=== PATIENT | female | born 1965 | race Hispanic/Latino ===

== ENCOUNTER 2016-10-21 11:30 | Day surgery (SDC) | payer OTHER ==
[2016-10-21] VITALS (9 sets, daily range): BP systolic 136–170; BP diastolic 78–90; PULSE 70–86; RESP 13–26; O2SAT 96–100
[~2016-10-21] VITALS: Ht 152.4 cm; Wt 74.9 kg
--- NOTE | 2016-10-21 06:37 | PCM.HPANE ---
Patient Data Surgeon Admitting Provider: Attending Provider:eDandre Jeffers MD Primary Care Physician:Osmel Becker MD Other Provider:Levon Singer Anesthesia Reason for Visit Cystocele, Rectocele, Stress Incontinence Ht/WT & BMI Height (Feet): 4 Height (Inches): 6 Weight (Kilograms): 78.481 Body Mass Index 41.00 Allergies Coded Allergies: latex (Verified Allergy, Unknown, UNKNOWN, 10/20/16) Uncoded Allergies: PEACH (Allergy, Unknown, ITCH AND MOUTH SWELLS, 11/18/03) PLASTIC (Allergy, Unknown, RED, 11/18/03) Past Anesthesia History Anesthesia History: Denies:: Anesthesia Reactions, Malignant Hyperthermia Diabetes History Hx Diabetes?: Yes (RECENT HGB A1C 7.1 DOWN FROM 8.2) Type of Diabetes: Type II Glycemic Control: Oral Medication MRSA MRSA: No Medications Reported Medications Atorvastatin (Lipitor)10 Mg Tab10 Mg PO DAILY Ref 0 10/20/16 Albuterol HFA (Proair HFA)8.5 Gm Hfa.aer.ad2 Puffs INHALATION Q4H PRN PRN #1 INHALER 10/20/16 Nitrofurantoin Monohyd/M-Cryst (MacroBid)100 Mg [id number] Mg PO BID Ref 0 10/20/16 Ibuprofen 800 Mg Rrimhp221 Mg PO DAILY PRN For Pain Ref 0 10/20/16 Phenazopyridine (Pyridium)200 Mg Lycaty975 Mg PO TID PRN For Pain Ref 0 10/20/16 Ascorbate Calcium (Vitamin C)500 Mg Jneguw685 Mg PO DAILY 05/17/15 Metformin (Glucophage)1,000 Mg Tablet1,000 Mg PO BID Ref 0 05/17/15 Discontinued Reported Medications Oxybutynin Chloride ER 5 Mg Tab.er.245 Mg PO DAILY Ref 0 05/18/15 Discontinued Scripts Valacyclovir 1,000 Mg Tablet1,000 Mg PO TID 7 Days Prov:Ileana Cortez DO 05/19/15 Prednisone (PredniSONE)20 Mg Rreqti58 Mg PO DAILY 7 Days Ref 0 Prov:Ileana Cortez DO 05/19/15 Atorvastatin Calcium 40 Mg Dxvbgj91 Mg PO HS 30 Days Prov:Ileana Cortez DO 05/19/15 History History of ENT Problems?: Yes HEENT History: Positive for:: Dysphagia (INTERMITTANT DYSPHAGIA) TMJ Other HEENT Pertinent History: 05/2015 FACIAL NERVE PALSEY Hx of Heart Problems?: Yes Cardiovascular History: Positive for:: Hypertension (OFF MEDS FOR 2 YRS NOW PER MD ORDER) Denies:: Congestive Heart Failure Heart Murmur (MPS 07/2012 WNL) Hx of Respiratory Problem?: Yes Respiratory History: Positive for:: Asthma (many years ago) Dyspnea (earlier today) Denies:: COPD Chest Surgery Emphysema Hemoptysis Pneumonia Tuberculosis Use of C-PAP Machine (SNORES) Hx Neurologic Problems?: Yes Neurological History: Positive for:: CVA (CVA RULED OUT 05/2015 DX W/ FACIAL NERVE PALSEY) Headaches Other Neurological Pertinent: MILD PERIPHERAL NEUROPATHY Hx of GI Problems?: Yes Other GI Pertinent History: S/P UMBILICAL HERNIA RPR Hx of Problems?: Yes Female Hx: Denies:: Currently Problems with Breasts? Skin History: Denies:: History Skin Disorders? Pressure Ulcers Hx Musculoskeletal Problems?: Yes Musculoskeletal History: Positive for:: Back Injury (C/OF BACK/NECK PAIN) Osteoarthritis Hx of Psycho/Social Problems?: No Hx Surgeries?: Yes (UMBILICAL HERNIA,HYST) Hx Any Other Health Problems?: Yes Other History: Positive for:: Hospitalization (HYPERGLYCEMIA) Denies:: Cancer Thyroid Disease History Blood Transfusions: Denies:: Accept Blood Products? Blood Transfuse Reaction Blood Transfusions (MUST ASK @ TIME FOR PERMISSION) Hx Diabetes: Yes (RECENT HGB A1C 7.1 DOWN FROM 8.2) Hx Alcohol Use: NoHx Substance Use: No Smoking Status: Never Smoker Have You Smoked inLast 12 mo: No Stop/Bang S-Snoring: Do You Snore Loudly: Yes T-Tired: feel tired, fatigued: No O-Obsered: Observed not breath: No P-Blood Pressure: treated: No B- Body Mass Index > 35 kg/m2: No A- Age over 50: Yes N- Neck Large Circumference: No G- Gender Male: No NABEEL Total Score: 2 NABEEL Risk Assessment: Low Risk, <3 Yes Risk Assessment Category Category 1A: Patient has history of documented sleep apnea, and HAS NOT received any narcotic, sedative or anesthesia administration during this stay. Category 1B: Patient has history of documented sleep apnea, and HAS received any narcotic , sedative or anesthesia administration during this stay Category 2: Patient has SUSPECTED Obstructive Sleep Apnea, and HAS received any narcotic , sedative or anesthesia administration during this stay. Category 3: Patient has SUSPECTED Obstructive Sleep Apnea and HAS NOT received narcotic, sedative or anesthesia administration during this stay. Category 4: Outpatient in Procedural Areas with known sleep apnea or who screen positive for High Risk via the STOP/BANG questionnaire. Exam Exam General Appearance: Alert, Oriented X3, Cooperative, No Acute Distress HEENT/AIRWAY: MP 2 Lungs: Clear to Auscultation, Normal Air Movement Heart: Exam Unremarkable, Regular Rate/Rhythm, No Murmurs/Rubs/Gallops Plan Impression Patient chart reviewed, patient interviewed and anesthestic plan with risks, benefits, and alternatives discussed, and informed consent obtained. ASA Physical Status: ASA2 Mod Systemic Disease Anesthetic Plan: GA Bene/Risks/Altern/Consents: Yes HP Complete Prior to Induction: Yes Dmitriy Kerr MD Oct 21, 2016 06:37
[~2016-10-21 11:30] MED LIST: ALBU8.5H2 INHALATION; ASCO-294 PO; ATRV10T PO; CeFAZolin Inj 2 GM in IV Premix 1 EACH IV ONE; IBUP800T28 PO; Lactated Ringer's 1,000 ML IV SCH; METF1000 PO; NITR100 PO; PHEN-684 PO; Phenazopyridine 97.5 mg Tablet PO ONE
[2016-10-21] MEDS ORDERED: Dexamethasone 4 mg/mL Inj ONE (11:31)
[2016-10-21] MEDS ORDERED: fentaNYL-PF 50 mCg/mL 2 mL Inj ONE (11:31)
[2016-10-21] MEDS ORDERED: Propofol 10,000 mCg/mL 20 mL Inj ONE (11:31)
[2016-10-21] MEDS ORDERED: Succinylcholine Chloride 20 mg/mL 5 mL Inj ONE (11:31)
[2016-10-21] MEDS ORDERED: Ondansetron 2 mg/mL 2 mL Inj ONE (11:31)
[2016-10-21] MEDS ORDERED: Rocuronium 10 mg/mL 5 mL Inj ONE (11:31)
[2016-10-21] MEDS ORDERED: Lactated Ringer's 1,000 ML IV ONE ×2 (12:16→17:00)
[2016-10-21] MEDS ORDERED: Gentamicin 40 mg/mL 2 mL Inj IRRIGATION ONE ×2 (13:59→14:15)
[2016-10-21] MEDS ORDERED: Lidocaine 1%-Epi 1:100,000 20 mL Inj INFILTRATE ONE (14:00)
[2016-10-21] MEDS ORDERED: Sodium Chloride LOK Flush 10 mL Syringe IVFLUSH ONE (14:01)
[2016-10-21] MEDS ORDERED: Lactated Ringer's 1,000 ML IV SCH (14:43)
[2016-10-21] MEDS ORDERED: Lactated Ringer's 500 ML IV PRN (14:43)
[2016-10-21] MEDS ORDERED: Atropine 0.4 mg/mL Inj IVPUSH PRN (14:45)
[2016-10-21] MEDS ORDERED: fentaNYL-PF 50 mCg/mL 2 mL Inj IVPUSH PRN (14:45)
[2016-10-21] MEDS ORDERED: Ondansetron 2 mg/mL 2 mL Inj IVPUSH PRN ×2 (14:45→17:15)
[2016-10-21] MEDS ORDERED: MetoCLOpramide 5 mg/mL 2 mL Inj IVPUSH PRN ×2 (14:45→17:15)
[2016-10-21] MEDS ORDERED: Phenylephrine 10,000 mCg/mL Inj IVPUSH PRN (14:45)
[2016-10-21] MEDS ORDERED: HYDROmorphone 1 mg/mL Inj IVPUSH PRN (14:45)
[2016-10-21] MEDS ORDERED: Dexamethasone 4 mg/mL Inj IVPUSH PRN (14:45)
[2016-10-21] MEDS ORDERED: EPHEDrine Sulfate 50 mg/mL Inj IVPUSH PRN (14:45)
[2016-10-21] MEDS ORDERED: Labetalol 5 mg/mL 4 mL Inj IV PRN (14:45)
[2016-10-21] MEDS ORDERED: hydrALAZINE 20 mg/mL Inj IVPUSH PRN (14:45)
[2016-10-21] MEDS: 0.9% Sodium Chloride 1,000 ML IV SCH (17:11)
[2016-10-21] MEDS ORDERED: Alum-Mag Hydrox-Simeth 30 mL Suspension PO PRN (17:15)
[2016-10-21] MEDS ORDERED: Acetaminophen IV 1,000 MG in IV Premix 1 EACH IV ONE (17:15)
--- NOTE | 2016-10-21 17:20 | PCM.ANEP1 ---
Post Anesthesia Phase 1 PACU Phase 1 Assessment Vital Signs Vital Signs Date Time Temp Pulse Resp B/P Pulse Ox O2 Delivery O2 Flow Rate FiO2 10/21/16 12:15 36.6 70 16 170/90 96 Room Air Anesthetic Administered: GA Level of Alertness: Awake, talking CASTILLO's with Equal Strength: Yes Pain: Yes Nausea or Vomiting: No Oxygen Delivery: Simple Mask Lungs: Clear to Auscultation, Normal Air Movement Dmitriy Kerr MD Oct 21, 2016 17:20
--- NOTE | 2016-10-21 17:21 | PCM.ANEP2 ---
Post Anesthesia Evaluation ASA/CMS Post Anesthesia VS in Patient's Normal Range?: Yes Resp Stable; Airway Patent?: Yes CV Function & Hydration Stable: Yes Mental Status Recovered?: Yes Pain control Satisfactory?: Yes N/V Control Satisfactory?: Yes Dmitriy Kerr MD Oct 21, 2016 17:21
--- NOTE | 2016-10-21 18:56 | NUR ---
ADMIT TO [facility] Patient arrived to room 1009 on OR gurredbird. Sleepy but awakens to voice and responds to questions. Transferred via slide board to hospital bed with 3 person assist. On 2 LPM O2 via NC. No complaints of nausea. C/o abdominal cramping 9/10 to lower pelvis. Administered 1mg morphine IVP. No bleeding on robert pad, vaginal packing in place. Lee catheter in place and draining clear yellow urine. IV fluids connected. Oriented to room and call light. Family in with patient at bedside.
[2016-10-21 19:41] LABS: APPEARANCE,URINE HAZY (CLEAR,HAZY); COLOR,URINE YELLOW (YELLOW); OCCULT BLOOD,URINE LARGE (NEGATIVE); PH,URINE 6.5 (5.0-8.0)
[2016-10-21 19:42] LABS: UROBILINOGEN,URINE NORMAL (NORMAL)
[2016-10-21] MEDS ORDERED: Albuterol 2.5 mg/3 mL Inhalation Solution NEB PRN (20:00)
[2016-10-21] MEDS: Insulin Human REGular 300 Unit/3 mL Inj SUBQ SCH (23:08)
[2016-10-21] MEDS: Senna-Docusate 8.6-50 mg Tablet PO SCH (23:09)
[2016-10-21] MEDS: Nitrofurantoin Monohyd-Macrocryst 100 mg Capsule PO SCH (23:10)
--- NOTE | 2016-10-21 23:31 | PCM.SURGOP ---
Surgical Operative Report Date of Service: Oct 21, 2016 Pre Operative Diagnosis 1. Cystocele, midline N81.11 (618.01): 2. Rectocele N81.6 (618.04): 3. 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 Stress incontinence in female N39.3 Post Operative Diagnosis 1. POPQ stage 2 Cystocele, midline N81.11 2. POPQ stage 2 Rectocele N81.6 (618.04): 3. POPQ stage 2 Enterocele and Vaginal vault prolapse after hysterectomy N99.3 ( 618.5): 4. Stress incontinence in female N39.3 5. Deficient pubocervical/pubovesical fascia Procedure: 1. anterior repair with Xenform graft augmentation 2. posterior repair 3. high uterosacral ligament vaginal vault suspension, enterocele repair 4. TVT-obturator sling and cystoscopy Surgeon and Fpga Engineer: Surgeon: Deandre Jeffers MD Assistants: Keith Villalba MD, Josh Mcclelland MD Indication for Procedure Her assessment to date includes: 1. Cystocele, midline N81.11 (618.01): 2. Rectocele N81.6 (618.04): 3. 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 Urge incontinence N39.41 (788.31): 5. Stress incontinence in female N39.3 The patient is a candidate for surgical prolapse management in the form of: anterior repair. and posterior repair with possible biologic graft augmentation. high uterosacral ligament vaginal vault suspension, enterocele repair and TVT-obturator sling. The patient signed the consent form. She agreed with the risks, benefits, and alternatives to surgery. The risks included but not limited to recurrence or persistence of prolapse, recurrence of persistence of incontinence, development of voiding dysfunction, development of urinary urgency, urgency incontinence, frequency, and need for intermittent self-catheterization or prolonged indwelling catheterization, injury to other organs including bladder, bowel, nerves or blood vessels. Need for blood transfusion, need for temporary colostomy or urinary stenting. Development of vaginal scarring, dyspareunia, defecatory dysfunction, recurring pain, hematoma formation, urinary tract infection, cellulitis, necrotizing fascitis, and medical risks including myocardial infarction, stroke or VTE. She also understood the FDA warnings associated with the use of vaginal mesh (dysparunia, vaginal erosion, erosion into bowel/bladder/urethra, requiring further surgery to correct these complications). The patient understood the risks and benefits and consented to surgery. Findings: see dictation Procedure Details SURGICAL TECHNIQUE: The patient was brought to the operating room and was placed under general anesthesia. She was prepped and draped in the normal fashion for vaginal surgery with the legs in Yellofin stirrups. She was given a dose of 2 gram IV ancef Intraoperatively. She received 200 mg of oral pyridium in the pre-operative holding area. 1. Anterior colporrhaphy with Xenform graft augmentation: Lidocaine 0.5% with 1/739088 epinephrine was infiltrated along the anterior vaginal wall mucosa. A midline vertical incision was made through the anterior vaginal wall. The vaginal wall was dissected off the underlying pubocervical and pubovesical fascia. The dissection was extended laterally beyond the ischial pubic rami. It was noted that the pubocervical and pubovesical fascial tissues were deficient and thin. During the apical dissection, an enterocele sac was encountered and this was entered with sharp dissection with Metzenbaum scissors. The apex descended to the level of the hymen (POPQ Stage 2). We then proceeded with a vault suspension and would later resume the anterior repair. 2. High uterosacral ligament vaginal vault suspension, cystoscopy and enterocele repair: Several mini laparotomy sponges were packed to retract the bowel upwards. A pair of Allis clamps were placed along the intraperitoneal portions of the vagina at the 5 and 7 o'clock positions. Tension along these Allis clamps allowed for identification of the uterosacral ligaments bilaterally. A pair of 0 Vicryl sutures were passed around the uterosacral ligaments of the level of the ischial spine bilaterally, totalling 4. Then we proceeded with cystoscopy. Cystoscopy revealed a normal appearing urethra. The bladder revealed cystitis cystica. Both ureteral orifices were visualized and noted to be functional by the brisk spillage of pyridium-stained urine. Next, a pair of 3-0 Prolene sutures were placed transversely through the cul-de-sac peritoneum. This was performed while using a gloved finger in the rectum as to avoid penetrating the underlying rectal mucosa. Tying these sutures obliterated the enterocele. We then proceeded with the rest of the anterior repair. The cystocele was plicated in 2 layers, the first layer with 2-0 Vicryl suture in interrupted fashion, the second layer with 2-0 Tycron suture in an interrupted fashion. A Trapezoidal piece of Xenform graft was then incorporated atop the plicated area. Far laterally, the graft was secured to the obturator internus membrane. At the level of the bladder neck, an upside down triangular piece of graft was excised so that there was no over-support created along the level of the bladder neck. Apically , the graft was passed through 2 of the uterosacral ligament sutures. A small amount of excess anterior vaginal mucosa was excised. The high uterosacral ligament vaginal vault suspension sutures were passed through the planned apex of the vagina. The vagina was then reapproximated using 3-0 Vicryl suture in a running locked fashion. The high uterosacral ligament vaginal vault suspension sutures were tied and this elevated the apex of the vagina high up into the hollow of the sacrum. 3. Posterior colpoperineorrhaphy: Lidocaine 0.5% with 1:200,000 of epinephrine was infiltrated along the perineum and posterior vaginal wall mucosa. A small inder-shaped wedge of perineum was excised. A Midline vertical incision was made through the posterior vagina with a scalpel. The vaginal mucosa was dissected off the underlying rectovaginal tissues. It was noted the fascial tissues were not thin or deficient. The rectocele was plicated in one layer using 2-0 Vicryl suture in an interrupted fashion. Small amount of excess posterior vaginal mucosa was excised. The vagina was reapproximated using 3-0 vicryl suture in a running locked fashion. . Perineum was reapproximated using 2-0 Vicryl suture in an interrupted fashion. The skin was reapproximated using 3-0 Vicryl suture in a subcuticular fashion. 4. Tension-free vaginal tape obturator sling and cystoscopy: Lidocaine 0.5% with 1/68759 epinephrine was infiltrated along the anterior vaginal wall mucosa at the level of the mid urethra. Midline vertical incision was made at that level, 2 periurethral tunnels were created with Metzenbaum scissors. Two stab incisions were created at the skin at the groin at a level 2 cm superior to the external urethral meatus and 2 cm lateral to the fold created between the vulva and thigh. Lee catheter had already been inserted, 5 mL of IV indigo carmine was given. A butterfly guide was inserted into the right periurethral tunnel, a curved helical needle was inserted on top of the guide and rotated out to the ipsilateral skin incision. The same procedure was performed on the contralateral side. Next the Lee catheter was removed. Cystoscopy was performed. There was no inadvertent penetration of the sling to the vagina, urethra or bladder. In addition, the ureteric orifices were noted bilaterally and were noted to be functional by the first spillage of pyridium-stained urine. The bladder appeared normal. The plastic sheaths of the sling were removed. The bladder was filled with 300 mL of sterile water. Using the Crede maneuver, sling tension was appropriately adjusted. Also a larger right angle clamp was allowed to easily pass behind the sling so that the sling was placed in a tension-free manner. The sling ends were cut at the level of the skin. The skin was reapproximated using Mastisol, Steri-Strips and band-aids. The vagina was reapproximated using 3-0 Vicryl suture in a running fashion. The estimated blood loss was approximately 250 mL. There were no complications. All sponges and instruments were accounted for. Complications There were no periprocedural complications identified. Surgical Specimen Removed: No Specimen sent to Pathology: No Anesthetic Plan: GA Grafts, Implants: Grafts-See Implant Record, Implants-See Implant Record Output, Estimated Blood Loss: 250 (ml) Blood Administration during lemos: No Drains: None Catheters: Urethral 2 Way Lee Post Operative Plan overnight observation in bed as she requires a voiding trial in the am copies to: Josh Mcclelland MD; Keith Villalba MD; Osmel Becker MD; Deandre Jeffers MD, William Andre Z MD Oct 21, 2016 23:31
[2016-10-22] MEDS: 0.9% Sodium Chloride 1,000 ML IV SCH ×2 (01:11→09:11)
--- NOTE | 2016-10-22 01:46 | NUR ---
Room change At 2100 Pt moved to RM 1003. Family at bedside. Pt uncomfortable, reports px 10/10, IVP morphine given and repositioned with + effects. Aziza pad in place with 0 discharge. Lee cath patent draining clear urine to gravity.
[2016-10-22] MEDS: Insulin Human REGular 300 Unit/3 mL Inj SUBQ SCH ×3 (03:15→14:30)
[2016-10-22 04:12] VITALS: BP 143/85; PULSE 93; RESP 17; O2SAT 98
[2016-10-22 05:55] LABS: BASOPHILS % (AUTO) 0.2 % (0-3); EOSINOPHILS % (AUTO) 0 % (0-5); MONOCYTES % (AUTO) 9.6 % (4-12); Mean Corpuscular Hemoglobin 29.7 pg (27.0-35.0); Mean Corpuscular Volume 88.5 fL (81-100); NEUTROPHILS % (AUTO) 73.3 % (40-74); Platelet Count 211 bil/L (150-400)
[2016-10-22 07:48] VITALS: BP 135/88; PULSE 73; RESP 16; O2SAT 99
[2016-10-22] MEDS: Senna-Docusate 8.6-50 mg Tablet PO SCH (08:08)
[2016-10-22] MEDS: oxyCODONE-Acetamin 5-325 mg Tablet PO PRN ×2 (08:08→11:49)
[2016-10-22] MEDS ORDERED: Heparin 5,000 Unit/mL Inj SUBQ SCH (08:30)
[2016-10-22] MEDS: Nitrofurantoin Monohyd-Macrocryst 100 mg Capsule PO SCH (08:57)
--- NOTE | 2016-10-22 09:59 | PCM.DIGYN ---
Surgical Discharge Instruction Dates of Hospitalization Date of Hospital Admission 10/21/16 outpatient overnight observation in bed Providers Admitting Physician: Primary Care Physician: Osmel Becker MD Attending Physician: Deandre Jeffers MD Diagnosis at Time of Discharge Diagnosis at time of discharge 1. POPQ stage 2 Cystocele, midline N81.11 2. POPQ stage 2 Rectocele N81.6 (618.04): 3. POPQ stage 2 Enterocele and Vaginal vault prolapse after hysterectomy N99.3 ( 618.5): 4. Stress incontinence in female N39.3 5. Deficient pubocervical/pubovesical fascia Post-operative diagnosis 1. POPQ stage 2 Cystocele, midline N81.11 2. POPQ stage 2 Rectocele N81.6 (618.04): 3. POPQ stage 2 Enterocele and Vaginal vault prolapse after hysterectomy N99.3 ( 618.5): 4. Stress incontinence in female N39.3 5. Deficient pubocervical/pubovesical fascia Problems: Diet Discharge Diet: No restrictions, Diabetic Activity Discharge Activity-General: Restrict lifting to no greater than (10 lbs for 6 wk) Dressing and Incisional Care Dressing Care: Allow Steri Stripes to fall off Hygiene: May shower Follow Up Plan Follow-up appointment: Weeks (2; also f/u in [address] Jeffers's MA if home with west) Call your provider for: Fever, Chills, Shortness of breath, Vomitting, Drainage at incision, Heavy vaginal bleeding, Wound redness, Increasing pain Deandre Jeffers MD Oct 22, 2016 09:59
--- NOTE | 2016-10-22 13:00 | NUR ---
VOIDING TRIAL/MD NOTIFICATION Vaginal packing d/cd. 300 ml of saline instilled. IFC d/cd. Patient was able to void 300 ml of pink tinged UO. However, patient was bladder scanned and PVR was 400+. Patient stated that she will attempt to void again. Patient voided after lunch. 300 ml of pink tinged UO noted again. PVR was 400-500+. Dr. Jeffers made aware RE: Patient's post-op progress and voiding trial results. Per MD reinsert IFC and patient may D/C after. Patient was made aware of this and she verbalized understanding.
--- NOTE | 2016-10-22 13:15 | PCM.PNSURG ---
Subjective Date of Service: Oct 22, 2016 Date of Service: Oct 22, 2016 Visit Information: Reason for Visit Cystocele, Rectocele, Stress Incontinence Surgery/Surgery Date Post-Op Day # 1 Subjective: AVSS HCT stable OR explained po pain meds - good pain control tolerating po intake voiding trial this am ambulated Postop General: No Complaints Objective Vital Sign- Last 8 Hours Date Time Temp Pulse Resp B/P Pulse Ox O2 Delivery O2 Flow Rate FiO2 10/22/16 08:17 Supplement Oxygen 10/22/16 07:48 36.9 73 16 135/88 99 Nasal Cannula 2.00 Intake and Output- Last 8 Hour 10/22/16 Cumulative From/Thru 07:00 10/20/16 18:26 - 10/22/16 04:10 Intake Total 0 ml 1350 ml Output Total 1050 ml 1850 ml Balance -1050 ml -500 ml Intake Oral 0 ml 0 ml IV Total 1350 ml Output Urine Total 800 ml 1350 ml Estimated Blood Loss 250 ml 500 ml # Bowel Movements 0 0 General: Alert, Oriented X3, Cooperative Lungs: Clear to Auscultation Abdomen: Benign, Soft Catheters: Urethral [address] Result Diagram: 10/22/16 0510 Assessment & Plan Impression POD#1 stable for discharge later today Problems: Plan Voiding trial this am d/c later this afternoon/evening f/u in 2 wk (also in 1 wk if home with west) VTE Prophylaxis: Sub-Q Heparin (Unfractionated) Resuscitation Status: CPR: Attempt Resuscitation copies to: Deandre Jeffers MD, William Andre Z MD Oct 22, 2016 13:15
[2016-10-22 13:25] VITALS: BP 148/79; PULSE 64; RESP 16; O2SAT 95
--- NOTE | 2016-10-22 16:34 | NUR ---
DISCHARGE Percocet 2 tabs PO has been helpful for pain control. Ibuprofen PO was also started. Patient rated her pain as 4-5/10 after her pain medication. Patient stated that she has pain only with activity and that her pain level is tolerable for her. She stated that her pain is better after the vaginal packing was d/cd. Tolerating liquids PO and her diet well. Denies nausea. No emesis noted. Denies SOB. Patient was able to ambulate in her room and has gotten OOB and transferred independently to the [facility]. Patient tolerated activity fairly with some dizziness noted. MD is aware of this during morning rounds. IFC was reinserted per orders. IV saline lock d/cd. Discharge instructions, care notes and prescription was given to the patient and her sister, who will be helping her at home. IFC teaching was done with the bobbin dumper at the bedside. Patients sister was able to empty and demonstrate how to take care of the IFC bag. The patient and her family verbalized understanding RE: Discharge instructions and teaching. Glaze Supervisor was at the bedside for the entire D/C. Questions were answered via the bobbin dumper. (Copy of D/C is in the chart).
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
[2016-12-14] MEDS ORDERED: SULF1TAB7 PO ×2 (14:20)
[2016-12-14] MEDS ORDERED: VITA400C23 PO (14:20)
[2016-12-14] MEDS ORDERED: CHOL100045 PO (14:20)
[2016-12-14] MEDS ORDERED: VIT1TABL83 PO (14:20)
== END 2016-10-21 23:59 | disposition home or self-care (01) ==
LOC: SAS 11:30 → OSC 18:59 → SAS 23:59
PROVIDERS: ATTEND Obstetrics & Gynecology
DX: N81.11 Cystocele, midline (principal); N81.6 Rectocele; N99.3 Prolapse of vaginal vault after hysterectomy; N39.3 Stress incontinence (female) (male); E11.9 Type 2 diabetes mellitus without complications; I10 Essential (primary) hypertension; R13.10 Dysphagia, unspecified; J45.909 Unspecified asthma, uncomplicated; Z79.84 Long term (current) use of oral hypoglycemic drugs
CPT/HCPCS: 57265; 57267; 57283; 57288; 81000; 87086; C1763; C1771; J0131; J0330; J0690; J1100; J1580; J1815; J1885; J2175; J2250; J2270; J2405; J2765; J3010; J7030; J7120

== ENCOUNTER 2016-12-15 13:02 | Day surgery (SDC) | payer OTHER ==
[2016-12-15] VITALS (8 sets, daily range): BP systolic 113–140; BP diastolic 68–83; PULSE 64–72; RESP 14–16; O2SAT 99
[~2016-12-15] VITALS: Ht 152.4 cm; Wt 69.5 kg
[~2016-12-15 13:02] MED LIST changes: +CHOL100045 PO; -NITR100 PO; -PHEN-684 PO; -Phenazopyridine 97.5 mg Tablet PO ONE; +SULF1TAB7 PO; +VIT1TABL83 PO; +VITA400C23 PO
[2016-12-15] MEDS ORDERED: Propofol 10,000 mCg/mL 20 mL Inj ONE (13:03)
[2016-12-15] MEDS ORDERED: MetoCLOpramide 5 mg/mL 2 mL Inj ONE (13:03)
[2016-12-15] MEDS ORDERED: Ondansetron 2 mg/mL 2 mL Inj ONE (13:03)
[2016-12-15] MEDS ORDERED: CeFAZolin Inj 2 gm / 50mL D5W IV ONE (13:27)
[2016-12-15] MEDS ORDERED: Lactated Ringer's 1,000 ML IV ONE (13:30)
[2016-12-15] MEDS ORDERED: Lactated Ringer's 1,000 ML IV SCH (17:11)
[2016-12-15] MEDS ORDERED: Lactated Ringer's 500 ML IV PRN (17:11)
[2016-12-15] MEDS ORDERED: Phenylephrine 10,000 mCg/mL Inj IVPUSH PRN (17:15)
[2016-12-15] MEDS ORDERED: fentaNYL-PF 50 mCg/mL 2 mL Inj IVPUSH PRN (17:15)
[2016-12-15] MEDS ORDERED: EPHEDrine Sulfate 50 mg/mL Inj IVPUSH PRN (17:15)
[2016-12-15] MEDS ORDERED: Labetalol 5 mg/mL 4 mL Inj IV PRN (17:15)
[2016-12-15] MEDS ORDERED: MetoCLOpramide 5 mg/mL 2 mL Inj IVPUSH PRN ×2 (17:15→17:35)
[2016-12-15] MEDS ORDERED: Atropine 0.4 mg/mL Inj IVPUSH PRN (17:15)
[2016-12-15] MEDS ORDERED: Ondansetron 2 mg/mL 2 mL Inj IVPUSH PRN ×2 (17:15→17:35)
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
[2016-12-15] MEDS ORDERED: Lidocaine 1%-Epi 1:100,000 20 mL Inj INFILTRATE ONE (17:27)
[2016-12-15] MEDS ORDERED: Acetaminophen IV 1,000 MG in IV Premix 1 EACH IV PRN (17:35)
[2016-12-15] MEDS ORDERED: oxyCODONE-Acetamin 5-325 mg Tablet PO PRN (17:35)
[2016-12-15] MEDS ORDERED: 0.9% Sodium Chloride 1,000 ML IV SCH (17:35)
--- NOTE | 2016-12-15 17:48 | PCM.DIGYN ---
Surgical Discharge Instruction Dates of Hospitalization Date of Hospital Admission 12/15/16 outpatient Providers Admitting Physician: Primary Care Physician: Osmel Becker MD Attending Physician: Deandre Jeffers MD Diagnosis at Time of Discharge Diagnosis at time of discharge urinary retention Post-operative diagnosis same Problems: Diet Discharge Diet: Diabetic Activity Discharge Activity-General: No lifting >10 pounds for 4-6 weeks Dressing and Incisional Care Hygiene: May shower Follow Up Plan Follow-up appointment: Weeks (2; if home with west, see dr. jeffers's MA in 1 wk also) Call your provider for: Fever, Chills, Shortness of breath, Vomitting, Heavy vaginal bleeding, Increasing pain Deandre Jeffers MD December 15, 2016 17:48
[2016-12-15] MEDS ORDERED: Non-Formulary Medication (Metformin (Glucophage) 1,000 MG) PO SCH (20:30)
[2016-12-15] MEDS ORDERED: _Trimethoprim-Sulfa 160/800 mg Tablet PO SCH (20:30)
--- NOTE | 2016-12-15 20:47 | PCM.SURGOP ---
Surgical Operative Report Date of Service: December 15, 2016 Pre Operative Diagnosis 1. urinary retention Post Operative Diagnosis same Procedure: Revision of urethral sling, cystoscopy Surgeon and Rigging Up Man: Surgeon: Deandre Jeffers MD Assistants: None Indication for Procedure She had the following on 10/21/16: 1. anterior repair with Xenform graft augmentation 2. posterior repair 3. high uterosacral ligament vaginal vault suspension, enterocele repair 4. TVT-obturator sling and cystoscopy We have noted urinary retention and she has required intermittent self- catheterization. PVR's at home recently range from 100-400 ml. Urinary stream is slower. She is not using her OAB medication. We offered her to option of continued intermittent self-catheterization to see if the voiding dysfunction improves through time or sling revision. She opts to have a sling revision in the OR rather than the clinic setting. The patient signed the consent form. She agreed with the risks, benefits, and alternatives to surgery. The risks included but not limited to recurrence or persistence voiding dysfunction, worsening of urinary urgency, urgency incontinence, frequency, and need for intermittent self-catheterization or prolonged indwelling catheterization, injury to other organs including bladder, urethra, nerves or blood vessels. Need for blood transfusion. Development of vaginal scarring, dyspareunia, recurring pain, hematoma formation, urinary tract infection, cellulitis, necrotizing fascitis, and medical risks including myocardial infarction, stroke or VTE. She also understood the FDA warnings associated with the use of vaginal mesh (dysparunia, vaginal erosion, erosion into bowel/bladder/urethra, requiring further surgery to correct these complications). She understands there is a 20% risk of recurrent stress incontinence that can be treated with urethral injection. If revision fails, a more extensive excision of the mid-portion of the sling may need to be done in the future. The patient understood the risks and benefits and consented to surgery. Albanian translation was performed by kirill Ritter MA. Findings: see dictation Procedure Details The patient was brought to the operating room and was placed under general anesthesia. She was prepped and draped in the normal fashion for vaginal surgery with the legs in Yellofin stirrups. Care was taken to position the patient.. She was given a dose of IV Ancef intraoperatively. 1. Revision of TVT-obturator sling. Lidocaine 0.5% with [id number] epinephrine was infiltrated along the anterior vaginal wall mucosa at the level of the mid- urethra. A midline vertical incision was made through the anterior vaginal wall at the level of the mid-urethra. During the dissection, the previous TVT -O sling was easily identified. The mid portion of the urethral sling was dissected off the underlying pubourethral tissue by passing a thin hemostat behind the sling. The sling was incised at the mid-portion. To reduce the incidence of erosion of the graft through the vagina, the very distal frayed sling ends were excised. The vagina was reapproximated with 3-0 vicryl suture in a continuous fashion. 2. Cystoscopy: We then proceeded with cystoscopy. Cystoscopy revealed a normal appearing urethra and bladder. Both ureteric orifices were visualized. There was no inadvertent injury to the urethra. The estimated blood loss was minimal. There were no complications. All sponges and instruments were accounted for. The patient was taken to the recovery room in stable condition. Complications There were no periprocedural complications identified. Surgical Specimen Removed: No Specimen sent to Pathology: No Anesthetic Plan: GA Grafts, Implants: None Output, Estimated Blood Loss: 5 (ml EBL) Blood Administration during lemos: No Drains: None Catheters: Urethral 2 Way Lee Post Operative Plan voiding trial, then discharge home today copies to: Deandre Jeffers MD, William Andre Z MD December 15, 2016 20:47
[2016-12-17] MEDS ORDERED: Albuterol 2.5 mg/3 mL Inhalation Solution NEB PRN (07:00)
== END 2016-12-15 23:59 | disposition home or self-care (01) ==
LOC: SAS 13:02
PROVIDERS: ATTEND Obstetrics & Gynecology
DX: N39.3 Stress incontinence (female) (male) (principal); R33.9 Retention of urine, unspecified; R39.198 Other difficulties with micturition; E11.42 Type 2 diabetes mellitus with diabetic polyneuropathy; E78.5 Hyperlipidemia, unspecified; F32.9 Major depressive disorder, single episode, unspecified; Z79.84 Long term (current) use of oral hypoglycemic drugs
CPT/HCPCS: 57287; J0690; J1885; J2405; J2765; J7120